=== PATIENT | female | born 1935 | race African-American/Black ===

== ENCOUNTER 2017-07-08 20:49 | Observation (INO) | payer MEDICARE ==
[~2017-07-08] VITALS: Ht 167.6 cm; Wt 53.1 kg
[~2017-07-08 20:49] MED LIST: AMLO10TA4 PO; BENA20TA3 PO; OMEP20CA10 PO; SYN175 PO; [UNRECOGNIZED DRUG - REMARK]
[2017-07-08] MEDS ORDERED: ACETAMINOPHEN 325MG TABLET PO STA (21:09)
[2017-07-08 21:54] LABS: BASOPHILS % 0.4 % (0.0-2.0); EOSINOPHILS % 0.5 % (0.0-5.0); HEMOGLOBIN. 13.1 g/dL (12.0-16.0); LYMPHOCYTES % 3.5 % (20.0-50.0); MEAN CORPUSCULAR HEMOGLOBIN 31.3 pg (28.0-32.0); MEAN CORPUSCULAR VOLUME 93.4 fL (81.0-99.0); MEAN PLATELET VOLUME 8.2 fl (7.4-10.4); MONOCYTES % 5.1 % (2.0-8.0); NEUTROPHILS % 90.5 % (40.0-76.0); PLATELET 248 x1000/uL (130-400); RED BLOOD CELL COUNT 4.18 mill/uL (4.2-5.4); RED CELL DISTRIBUTION WIDTH 14.1 % (11.6-14.6)
[2017-07-08 21:58] LABS: INR 1.1; PROTHROMBIN TIME 11.4 sec (9.4-11.6)
[2017-07-08 22:13] LABS: CARBON DIOXIDE 32 mEq/L (21-32); CHLORIDE 100 mEq/L (98-107); ETHANOL BLOOD < 10 mg/dL; TROPONIN I < 0.02 ng/mL (0.00-0.04)
[2017-07-08 22:58] LABS: CLARITY URINE CLEAR (CLEAR); COLOR URINE YELLOW (YELLOW); KETONES URINE TRACE (NEGATIVE); LEUKOCYTE ESTERASE URINE NEGATIVE (NEGATIVE); NITRITE URINE NEGATIVE (NEGATIVE); OCCULT BLOOD URINE NEGATIVE (NEGATIVE); PH URINE 5.5 (4.5-8.0); PROTEIN URINE NEGATIVE (NEGATIVE); SPECIFIC GRAVITY URINE 1.022 (1.005-1.030)
[2017-07-08 23:07] VITALS: BP 147/61
[2017-07-08 23:10] LABS: *AMPHETAMINES SCREEN URINE NEGATIVE (NEGATIVE); *BARBITURATES SCREEN URINE NEGATIVE (NEGATIVE); *BENZODIAZEPINES SCREEN URINE NEGATIVE (NEGATIVE); *COCAINE SCREEN URINE NEGATIVE (NEGATIVE); CANNABINOID URINE SCREEN NEGATIVE (NEGATIVE); METHADONE URINE SCREEN NEGATIVE (NEGATIVE); OPIATES URINE SCREEN NEGATIVE (NEGATIVE); PHENCYCLIDINE URINE SCREEN NEGATIVE (NEGATIVE)
[2017-07-09] VITALS: BP 147/61
[2017-07-09] MEDS ORDERED: SERT50TA PO (00:40)
[2017-07-09] MEDS ORDERED: METF10002 PO (00:40)
[2017-07-09] MEDS ORDERED: ATEN50TA PO (00:40)
[2017-07-09] MEDS ORDERED: PRAN1 PO (00:40)
[2017-07-09] MEDS ORDERED: LEVO88TA2 PO (00:42)
[2017-07-09] MEDS ORDERED: ACETAMINOPHEN 325MG TABLET PO PRN (03:15)
[2017-07-09] MEDS ORDERED: DEXTROSE 50% WATER 50ML SYRINGE IV PRN (03:15)
[2017-07-09] MEDS ORDERED: ONDANSETRON HCL 4MG/2ML VIAL IV PRN (03:15)
[2017-07-09 04:00] VITALS: BP 151/67
[2017-07-09] MEDS: BLOOD SUGAR DIAGNOSTIC STRIP TEST SCH ×3 (06:07→16:51)
[2017-07-09] MEDS: INSULIN LISPRO 100 UNITS/ML SUBCUT SCH ×3 (06:22→16:51)
[2017-07-09] MEDS ORDERED: LEVOTHYROXINE SODIUM 88MCG TABLET PO SCH (06:45)
[2017-07-09 06:50] LABS: HEMATOCRIT. 36.1 % (36.0-48.0); HEMOGLOBIN. 12.3 g/dL (12.0-16.0); MEAN CORPUSCULAR HEMOGLOBIN 31.7 pg (28.0-32.0); MEAN CORPUSCULAR VOLUME 92.9 fL (81.0-99.0); MEAN PLATELET VOLUME 8.9 fl (7.4-10.4); PLATELET 220 x1000/uL (130-400); RED BLOOD CELL COUNT 3.89 mill/uL (4.2-5.4); RED CELL DISTRIBUTION WIDTH 14.3 % (11.6-14.6)
[2017-07-09 07:31] LABS: CHLORIDE 101 mEq/L (98-107)
[2017-07-09 08:00] VITALS: BP 142/95
[2017-07-09 08:42] LABS: CREATINE KINASE 195 IU/L (26-192); TROPONIN I < 0.02 ng/mL (0.00-0.04)
[2017-07-09] MEDS ORDERED: AMLODIPINE 10MG TABLET PO SCH (09:00)
[2017-07-09] MEDS ORDERED: SERTRALINE HCL 50MG TABLET PO SCH (09:00)
[2017-07-09] MEDS ORDERED: BENAZEPRIL 20MG TABLET PO SCH (09:00)
[2017-07-09] MEDS ORDERED: ATENOLOL 50 MG TABLET PO SCH (09:00)
[2017-07-09] MEDS: METFORMIN HCL 500MG TABLET PO SCH ×2 (09:25→16:54)
[2017-07-09] MEDS: REPAGLINIDE 1MG TABLET PO SCH ×3 (09:32→16:54)
[2017-07-09 10:28] LABS: CARBON DIOXIDE 27 mEq/L (21-32); CREATINE KINASE MB FRACTION 1.9 ng/mL (0.5-3.6)
[2017-07-09 12:00] VITALS: BP 138/62
[2017-07-09] MEDS ORDERED: POTASSIUM CHLORIDE 20MEQ TABLET SR PO SCH (14:00)
[2017-07-09 15:27] LABS: PLATELET ESTIMATE NORMAL
[2017-07-09 15:33] LABS: CREATINE KINASE 175 IU/L (26-192); CREATINE KINASE MB FRACTION 1.1 ng/mL (0.5-3.6); TROPONIN I < 0.02 ng/mL (0.00-0.04)
[2017-07-09] MEDS ORDERED: POTASSIUM CHLORIDE 20MEQ TABLET SR PO NR (17:00)
[2017-07-09 17:35] VITALS: BP 125/60
[2017-07-09 20:00] VITALS: BP 115/63
== END 2017-07-09 20:50 | disposition home or self-care (01) ==
LOC: ER 20:49 → 5WST 21:30 → INTOOBSV 21:30 → EDBEDREQ 21:32 → ENRESERV 22:03
PROVIDERS: ADMIT Internal Medicine; ATTEND Internal Medicine
DX: R55 Syncope and collapse (principal); I10 Essential (primary) hypertension; E03.9 Hypothyroidism, unspecified; R73.03 Prediabetes; G30.9 Alzheimer's disease, unspecified
CPT/HCPCS: 36415; 70450; 71010; 80048; 80053; 80305; 81003; 82550; 82553; 82962; 83880; 84484; 85025; 85610; 93005; 93970; 96372; 99285; G0378; G0482; J1815

== ENCOUNTER 2019-07-02 12:14 | Emergency (ER) | payer MEDICARE ==
[~2019-07-02] VITALS: Ht 160 cm; Wt 52.0 kg
[~2019-07-02 12:14] MED LIST changes: +ATEN50TA PO; +BENA20TA10 PO; -BENA20TA3 PO; +LEVO88TA2 PO; +METF-416 PO; -OMEP20CA10 PO; +PRAN1 PO; +SERT50TA PO; -SYN175 PO; -[UNRECOGNIZED DRUG - REMARK]
[2019-07-02 16:41] VITALS: BP 137/78
== END 2019-07-02 20:21 | disposition left against medical advice (07) ==
LOC: ER 12:14
DX: Z53.21 Procedure and treatment not carried out due to patient leaving prior to being seen by health care provider (principal)